=== PATIENT | female | born 1965 | race Caucasian/White ===

== ENCOUNTER 2023-11-16 09:42 | Emergency (ER) | payer BC, SELFPAY ==
[2023-11-16 09:45] VITALS: BP 171/92
[2023-11-16 10:00] VITALS: BP 175/103
[2023-11-16 10:04] VITALS: BMI 26.5
--- NOTE | 2023-11-16 10:08 | ED.GENMED ---
History of Present Illness
General
Chief Complaint: Abdominal Symptoms
Source: patient
Exam Limitations: none
Time Seen by Provider: 11/16/23 09:47
Nursing documentation reviewed up to this point in time: agreed with
History of Present Illness
History of Present Illness:
58-year-old female with history of HLD, Paget's disease presents with sharp waxing and waning pains and constant dull pain across lower abdomen since 12 midnight. Up several times during night with diarrhea and noted bloody diarrhea this a.m. Pain
was 10/10 but now 4/10. Has taken nothing for pain. Denies SOB, CP, lightheadedness, was nauseous earlier but not now, no vomiting. No recent antibiotic use.
Past History
Past History
ED Past Medical History: Other (Paget's disease diagnosed 4 years ago after 1 dose of Reclast at that time has had no further issues.) and Other (Migraines)
ED Past Surgical History: Orthopedic
Social History
Tobacco: Non-smoker
Alcohol: None
Personal:
Living: with family
Employment: Employed
Review of Systems
Review of Systems
Allergies reviewed?: Yes
All Other Systems: ROS reviewed and negative except as documented in HPI and ROS
Constitutional: Reports fever, fatigue and chills
Respiratory: Denies trouble breathing
Cardiac: Denies chest pain
ABD/GI: Reports abdominal pain, nausea, diarrhea and bloody stools; Denies vomiting
: Denies dysuria, frequency, flank pain, difficulty voiding or urgency
Musculoskeletal: Reports no symptoms
Skin: Reports no symptoms
Neurological: Reports no symptoms
Phy Exam
Physical Exam
Physical Exam:
GENERAL: No acute distress. A&Ox3.
CONSTITUTIONAL: Afebrile.
EYES: clear, conjunctivae normal
ENMT: moist mucus membranes, Pharynx nl
RESPIRATORY: Regular respirations, nonlabored, lungs clear.
CARDIOVASCULAR: Regular rate and rhythm, no murmurs, no rubs.
GI: Soft, tender to palpate mid to lower left abdomen, no guarding, normal BS
Rectal: No stool in rectal vault, mucus on gloved finger is clear and heme-negative
MUSCULOSKELETAL: Moves with ease. Well perfused.
SKIN: Warm, dry, pink
PSYCH: Normal mood and affect. Well kept, interactive and appropriate
NEUROLOGIC: Awake, alert and oriented. No focal neurological deficits
Course
Orders/Labs/Results
Orders:
Orders
11/16/23 10:05
Ketorolac [Toradol] 15 mg IV NOW STA
11/16/23 10:06
CT Abd/pel W Iv And Oral Contr Urgent
Comment:
Reason For Exam: pain mid to left lower abdomen
0.9% Sodium Chloride 1000 ml [Nss] 1,000 ml IV BOLUS
Iohexol [Omnipaque] See Protocol PO NOW STA
11/16/23 10:17
Complete Blood Count/With Diff Urgent
Comprehensive Metabolic Panel Urgent
Erythrocyte Sed Rate Urgent
Comment: ADD ON
Lipase Urgent
Urinalysis Reflex To Culture Urgent
Date Specimen was Collected: 11/16/23
Time Specimen was Collected: 10:15
11/16/23 10:31
C-Reactive Protein Urgent
Comment: ADD ON
11/16/23 13:25
Add On- LAB Urgent
Tests Added?: CRP, ESR
Abnormal Lab Results
11/16/23
10:17
MCH 31.3 H pg
(27.0-31.0)
MPV 11.2 H fL
(7.4-10.4)
Absolute Neuts (auto) 7.5 H 10^3/uL
(1.4-6.5)
Absolute Monos (auto) 0.7 H 10^3/uL
(0.1-0.6)
Lymphocytes % 19.1 L %
(20.5-51.1)
Glucose 104 H mg/dl
(70-99)
11/16/23 10:17
11/16/23 10:17
Vital Signs
Initial and Last Documented VS:
Initial Vital Signs
Temp Pulse Resp BP Pulse Ox
98.1 F 81 18 171/92 98
11/16/23 09:45 11/16/23 09:45 11/16/23 09:45 11/16/23 09:45 11/16/23 09:45
Last Documented Vital Signs
Temp Pulse Resp BP Pulse Ox
98.1 F 67 18 163/101 98
11/16/23 09:45 11/16/23 13:43 11/16/23 10:00 11/16/23 13:43 11/16/23 10:00
MDM/Problems Addressed
Differential Diagnosis Includes:
diverticulitis, colitis
MDM/Problems Addressed:
58-year-old female with history of HLD, Paget's disease presents with sharp waxing and waning pains and constant dull pain across lower abdomen since 12 midnight. Up several times during night with diarrhea and noted bloody diarrhea this a.m. Pain
was 10/10 but now 4/10. Has taken nothing for pain. Denies SOB, CP, lightheadedness, was nauseous earlier but not now, no vomiting. No recent antibiotic use.
Afebrile, NAD
CBC: Normal
CMP: Normal
Lipase: normal
UA negative
1:30 PM: CT abdomen pelvis with p.o. and IV contrast radiology report read: IMPRESSION: Findings suggesting 0moderate colitis of the left colon. No evidence of perforation or abscess formation.
During stay, pt had one very small (a few drops) bloody BM with urinating.
Stable for discharge
Rx for Levaquin and Flagyl sent to her pharmacy
Referred to GI for f/u
*Critical Care Note
Total Time (30-74mins, 75-104mins- exclusive of procedures): Not Applicable
ED Attending Note
-
Portions of this chart may have been created with voice recognition software.� Occasional wrong word or��sound alike� substitutions may have occurred due to the inherent limitations of voice recognition software.
Discharge Plan
Departure
Patient Disposition: Home (Routine Discharge)
Date of Disposition: 11/16/23
Time of Disposition: 13:27
Patient with high blood pressure during this ER visit?: No
Condition: Fair
Discharge Problem:
Colitis
Instructions: Colitis, Clear Liquid Diet, Abdominal Pain
Prescriptions:
New
ciprofloxacin HCl [Cipro] 500 mg tablet
500 mg PO BID Qty: 20 0RF
metronidazole 500 mg tablet
500 mg PO TID Qty: 30 0RF
Referrals:
Emery Gross MD [Active] - Call in 1-3 days for appt
Marc Santacruz MD [Family Provider] -
Activity Restrictions/Additional Instructions:
As we discussed, clear liquid diet for the next 2 days.
I sent a prescription to your pharmacy for 2 antibiotics to take for the next 10 days
Call the GI doctors office Saturday morning and make next available appointment
Return here immediately for fever, vomiting, worsening pain, increasing bloody stools or feeling sicker in any way.
Interventions
Interventions:
*Risk Screen - Suicide Last Done: 11/16/23 09:45
*General Assessment Last Done: 11/16/23 09:45
*Neglect/Abuse Screening Last Done: 11/16/23 09:45
ED- Fall Risk Assessment Last Done: 11/16/23 10:51
*ED COVID-19 Vaccine History Last Done: 11/16/23 09:45
*Nursing Disposition Last Done: 11/16/23 13:43
KI-Dwcsmw-Jetspcvcff Assessment Last Done: 11/16/23 10:51
Discharge Date and Time
Discharge Date/Time: 11/16/23 13:44
Print Language: [id number]
[2023-11-16] MEDS: OMNIPAQUE 50 ML PO (10:25)
[2023-11-16] MEDS: NSS 1000 IV (10:25)
[2023-11-16 10:46] LABS: ALT (SGPT) 31 U/L (0-35); AST (SGOT) 31 U/L (14-36); Albumin 4.8 g/dl (3.5-5.0); Alkaline Phosphatase 125 U/L (38-126); Blood Urea Nitrogen 15 mg/dl (7-17); Carbon Dioxide 26 mmol/L (22-30); Chloride 104 mmol/L (98-107); Estimated Creatinine Clearance 61 ml/min; Glucose 104 mg/dl (70-99); Potassium 4.3 mmol/L (3.5-5.1); Sodium 138 mmol/L (135-145); Total Bilirubin 0.8 mg/dl (0.2-1.3); eGFR > 60.00
[2023-11-16 10:51] LABS: Lipase 83 U/L (23-300)
[2023-11-16 10:59] LABS: Urine Albumin Negative (Neg - Trace); Urine Bilirubin Negative (Negative); Urine Character Clear (Clear); Urine Color Yellow; Urine Glucose Negative (Negative); Urine Ketone Negative (Negative); Urine Leukocyte Negative (Negative); Urine Nitrite Negative (Negative); Urine Occult Blood Negative (Negative); Urine Specific Gravity 1.025 (<1.030); Urine Urobilinogen Negative (Neg - 1+)
[2023-11-16 11:05] LABS: % Basophils 0.4 % (0-2); % Eosinophils 3.1 % (0-6); % Immature Granulocytes 0.3 % (0-0.5); % Lymphocytes 19.1 % (20.5-51.1); % Monocytes 6.9 % (1.7-9.3); % Neutrophils 70.2 % (42.2-75.2); Absolute Eosinophils 0.3 10^3/uL (0-0.7); Absolute Monocytes 0.7 10^3/uL (0.1-0.6); Absolute Neutrophils 7.5 10^3/uL (1.4-6.5); Hematocrit 43.9 % (37.0-47.0); Hemoglobin 15.7 g/dL (12.0-16.0); Mean Corp Hgb Conc. 35.8 g/dL (33.0-37.0); Mean Corpuscular Hgb 31.3 pg (27.0-31.0); Mean Corpuscular Volume 87.6 fL (81.0-99.0); Mean Platelet Volume 11.2 fL (7.4-10.4); Nucleated Red Blood Cells % 0 %; Platelet Count 264 10^3/uL (130-400); Red Blood Cell Count 5.01 10^6/uL (4.20-5.40); Red Cell Dist. Width 12.7 % (11.5-14.5); White Blood Cell Count 10.6 10^3/uL (4.8-10.8)
[2023-11-16 12:00] VITALS: BP 153/80
[2023-11-16 13:43] VITALS: BP 163/101
[2023-11-16 14:22] LABS: Erythrocyte Sed Rate 4 mm/hour (0-20)
[2023-11-16 14:32] LABS: C-Reactive Protein < 5.00 mg/L (0.0-10.00)
== END 2023-11-16 13:44 | disposition home or self-care (01) ==
LOC: EMR 09:42
PROVIDERS: Registered Nurse; EMERGENCY PHYSICIAN Student in an Organized Health Care Education/Training Program; FAMILY PHYSICIAN Internal Medicine
DX: R10.9 Unspecified abdominal pain (principal); E78.00 Pure hypercholesterolemia, unspecified; K52.9 Noninfective gastroenteritis and colitis, unspecified
CPT/HCPCS: 99284; 96360; 74177; 80053; 81003; 83690; 85025; 85652; 86140; Q9967